=== PATIENT | male | born 1970 | race Caucasian/White ===

== ENCOUNTER 2021-12-08 19:05 | Emergency (ER) | payer BC ==
[2021-12-08 19:15] VITALS: BP 172/100; PULSE 90; RESP 19; TEMP 98.6; BMI 34.4
[2021-12-08] MEDS ORDERED: KETOROLAC TROMETHAMINE 15 MG/ML VIAL IM ONE (19:29)
[2021-12-08] MEDS ORDERED: predniSONE 20 MG TABLET (UD) PO ONE (19:29)
[2021-12-08] MEDS: KETOROLAC TROMETHAMINE 30 MG/1 ML VIAL IM ONE ×2 (19:31→19:32)
== END 2021-12-08 20:52 | disposition home or self-care (01) ==
LOC: JERFT 19:05
PROC: 3E023GC Introduction of Other Therapeutic Substance into Muscle, Percutaneous Approach (ICD-10-PCS; principal; 2021-12-08)
DX: M10.472 Other secondary gout, left ankle and foot (principal)
CPT/HCPCS: 73630-TC-LT; 99284-25

== ENCOUNTER 2023-10-10 08:32 | Inpatient (IN) | payer BC ==
[2023-10-10] MEDS ORDERED: ONDANSETRON 4 MG/2 ML VIAL ONE (09:16)
[2023-10-10] MEDS: ONDANSETRON 4 MG/2 ML VIAL IVPUSH ONE (09:26)
[2023-10-10 09:42] LABS: CHLORIDE 89 mmol/L (98-107); POTASSIUM 3.8 mmol/L (3.5-5.1); SODIUM 126 mmol/L (136-145)
[2023-10-10 09:44] LABS: ANION GAP 10 mmol/L (4-13); CO2 27 mmol/L (21-32); GLUCOSE,RANDOM 374 mg/dL (74-106); MAGNESIUM 1.2 mg/dL (1.8-2.4)
[2023-10-10 09:47] LABS: CREATININE 1.8 mg/dL (0.55-1.3)
[2023-10-10 10:06] LABS: LDL CHOLESTEROL (ONLY SJRH) 135 mg/dL (5-100)
[2023-10-10 10:32] LABS: ALK PHOS 241 U/L (45-117); BILIRUBIN,TOTAL 3.7 mg/dL (0.2-1); BLOOD UREA NITROGEN 27.5 mg/dL (7-18); CHOLESTEROL 396 mg/dL (50-200); HDL CHOLESTEROL 22 mg/dL (40-60); TOT PROT 7.1 g/dl (6.4-8.2)
[2023-10-10 10:38] LABS: CREATININE 1.8 mg/dL (0.55-1.3)
[2023-10-10 10:43] LABS: ALBUMIN 2.1 g/dl (3.4-5.0); BILIRUBIN,TOTAL 3.6 mg/dL (0.2-1); BLOOD UREA NITROGEN 30.2 mg/dL (7-18)
[2023-10-10 10:55] LABS: BASO % 0.2 % (0-2.0); EOS % 0.2 % (0-4.5); HEMATOCRIT 33.9 % (35.4-49); HEMOGLOBIN 12.3 GM/dL (11.7-16.9); LYMPH % 12.1 % (8-40); MCH 31.9 pg (25.7-33.7); MCHC 36.2 g/dl (32.0-35.9); MEAN PLT VOLUME 8.8 fl (7.5-11.1); MONO % 5.9 % (3.8-10.2); NEUT % 81.6 % (42.8-82.8); PLATELET COUNT 161 10^3/uL (134-434); RBC 3.85 M/mm3 (4.00-5.60); RDW 15.8 % (11.9-15.9); WHITE BLOOD COUNT 15.5 K/mm3 (4.0-10.0)
[2023-10-10] MEDS: SODIUM CHLORIDE 1,000 ML IV STA (11:36)
[2023-10-10] MEDS: PANTOPRAZOLE SODIUM 160 MG in SODIUM CHLORIDE 290 ML IVPB SCH (11:36)
[2023-10-10 11:58] LABS: URINE APPEARANCE CLEAR; URINE BILIRUBIN NEGATIVE (NEGATIVE); URINE COLOR YELLOW; URINE GLUCOSE (UA) NEGATIVE (NEGATIVE); URINE KETONE 2+ (NEGATIVE); URINE LEUK ESTERASE NEGATIVE (NEGATIVE); URINE NITRITE NEGATIVE (NEGATIVE); URINE PROTEIN NEGATIVE (NEGATIVE); URINE UROBILINOGEN 0.2 mg/dL (0.2-1.0)
[2023-10-10] MEDS ORDERED: MAGNESIUM SULFATE IN WATER 2 GM/50 ML IVPB IVPB ONE (12:22)
[2023-10-10] MEDS: MAGNESIUM 2GM/50ML STERILE WATER IVPB IVPB ONE (12:28)
[2023-10-10] MEDS: INSULIN ASPART SLIDING SCALE (NOVOLOG) 1 VIAL SQ SCH (12:35)
[2023-10-10] MEDS: SODIUM CHLORIDE 1,000 ML IV SCH (13:00)
[2023-10-10] MEDS ORDERED: HEPARIN NA (PORCINE) 5,000 UNITS/ML 1ML VIAL ONE (13:53)
[2023-10-10] MEDS: HEPARIN NA (PORCINE) 5,000 UNITS/ML 1ML VIAL SQ SCH (14:33)
[2023-10-10 17:25] VITALS: BMI 36.0
[2023-10-10 18:10] VITALS: RESP 18
[2023-10-10 18:15] LABS: EOS % 0.1 % (0-4.5); MEAN PLT VOLUME 7.8 fl (7.5-11.1); PLATELET COUNT 133 10^3/uL (134-434); RBC 2.98 M/mm3 (4.00-5.60); RDW 15.6 % (11.9-15.9); WHITE BLOOD COUNT 11.1 K/mm3 (4.0-10.0)
[2023-10-10 18:36] LABS: HEMATOCRIT 26.5 % (35.4-49); HEMOGLOBIN 9.1 GM/dL (11.7-16.9); MCH 29.8 pg (25.7-33.7); MCHC 34.5 g/dl (32.0-35.9); MEAN CELL VOLUME 86.3 fl (80-96)
[2023-10-10 18:37] LABS: BASO % 0.4 % (0-2.0); LYMPH % 9.7 % (8-40); MONO % 7.3 % (3.8-10.2); NEUT % 82.5 % (42.8-82.8)
[2023-10-10 18:45] LABS: POTASSIUM 3.5 mmol/L (3.5-5.1)
[2023-10-10 18:50] LABS: CREATININE 1.4 mg/dL (0.55-1.3)
[2023-10-10] MEDS: SODIUM CHLORIDE 0.45% 1,000 ML IV SCH (19:00)
[2023-10-10 19:30] LABS: BLOOD UREA NITROGEN 32.9 mg/dL (7-18)
[2023-10-10] MEDS: DEXTROSE 5%-LACTATED RINGERS 1,000 ML IV SCH (20:15)
[2023-10-10] MEDS: LACTATED RINGERS SOLUTION 1000 ML INFUS.BAG IV ONE ×3 (20:59→22:50)
[2023-10-10] MEDS: CHLORHEXIDINE GLUCONATE 4% CLEANSER FOR DECOLONIZATION TP SCH (20:59)
[2023-10-10] MEDS: MUPIROCIN 2% TOPICAL OINTMENT FOR DECOLONIZATION NS SCH (20:59)
[2023-10-10] MEDS: INSULIN REGULAR 100 UNITS in SODIUM CHLORIDE 99 ML IVPB SCH ×2 (21:01→22:00)
[2023-10-10] MEDS: NOREPINEPHRINE 0.9 % NACL 8 MG/250 ML BAG IVPB SCH (21:15)
[2023-10-10] MEDS ORDERED: NOREPINEPHRINE BITARTRATE 4 MG/4 ML ML IV ONE (21:18)
[2023-10-10] MEDS ORDERED: VASopressin 40 UNITS/100 ML BAG IV SCH (23:45)
[2023-10-11] MEDS ORDERED: PHENYLEPHRINE HCL 10 MG/1 ML SINGLE DOSE VIAL ONE (00:02)
[2023-10-11] MEDS: PHENYLEPHRINE NS PREMIX 50,000 MCG/500 ML BAG CVP SCH (00:11)
[2023-10-11] MEDS: LACTATED RINGERS SOLUTION 1000 ML INFUS.BAG IV ONE (00:30)
[2023-10-11 01:27] VITALS: BP 118/61; PULSE 119; TEMP 98.9
== END 2023-10-11 01:28 | disposition short-term general hospital (02) | DRG 378 ==
LOC: JER 08:32 → JERBED 11:42 → JICU 16:57
PROVIDERS: ADMIT Internal Medicine Pulmonary Disease; ATTEND Internal Medicine Pulmonary Disease
DX: K92.0 Hematemesis (principal); E87.1 Hypo-osmolality and hyponatremia; N17.9 Acute kidney failure, unspecified; E78.1 Pure hyperglyceridemia; I10 Essential (primary) hypertension; E78.5 Hyperlipidemia, unspecified; E11.9 Type 2 diabetes mellitus without complications; D64.9 Anemia, unspecified; M10.9 Gout, unspecified
CPT/HCPCS: 0241U-QW; 36415; 36430; 71045-TC-FY; 74176-TC; 76775-TC; 80048; 80053; 80061; 81003; 82010; 82272; 82962; 83690; 83735; 83930; 84478; 84484; 85025; 85610; 85730; 86850; 86900; 86901; 86922; 87086; 93005; 93010; 94010; 99291; J1644; P9058